=== PATIENT | male | born 1945 | race Caucasian/White ===

== ENCOUNTER 2021-05-19 08:35 | Inpatient (IN) | payer BC, SELFPAY ==
[2021-05-18 20:00] VITALS: BP_SYST 114
[~2021-05-19] VITALS: Ht 182.9 cm; Wt 85.8 kg
[2021-05-19 09:41] VITALS: BP_SYST 115
[2021-05-19] MEDS ORDERED: NACL 0.9% 1,000 ML IV ONE (10:45)
[2021-05-19 11:09] LABS: BASOPHILS # (AUTO) 0.1 K/uL (0.0-0.2); BASOPHILS % (AUTO) 0.6 % (0.0-2.0); EOSINOPHILS % (AUTO) 0.4 % (0.0-4.0); HEMATOCRIT 40.7 % (36-54); HEMOGLOBIN 14.1 g/dL (14.0-18.0); LYMPHOCYTES # (AUTO) 0.8 K/uL (1.0-5.5); LYMPHOCYTES % (AUTO) 9.2 % (20.5-51.5); MEAN CORPUSCULAR HEMOGLOBIN 33 pg (27-31); MEAN CORPUSCULAR HGB CONC 35 % (32-36); MEAN CORPUSCULAR VOLUME 95 fL (79.0-98.0); MONOCYTES # (AUTO) 0.9 K/uL (0.0-1.0); MONOCYTES % (AUTO) 10.4 % (1.7-9.3); NEUTROPHILS # (AUTO) 6.8 K/uL (1.8-7.7); NEUTROPHILS % (AUTO) 79.4 % (40.0-70.0); PLATELET COUNT (AUTO) 239 K/uL (130-430); RED BLOOD CELL COUNT(AUTO) 4.28 MIL/uL (4.2-6.2); RED CELL DISTRIBUTION WIDTH 13.5 % (9.0-15.0); WHITE BLOOD COUNT (AUTO) 8.5 K/uL (4.8-10.8)
[2021-05-19] MEDS ORDERED: ETOMIDATE 20 MG/ 10 ML VIAL (AMIDATE) IVP ONE (11:30)
[2021-05-19 11:33] LABS: PROTHROMBIN TIME 10.4 SECS (9.5-12.5)
[2021-05-19 11:36] LABS: ANION GAP 11 (5-15); CALCIUM 8.5 mg/dL (8.4-11.0); CHLORIDE 100 mmol/L (98-107); CREATININE 1.31 mg/dL (0.55-1.30); GLUCOSE 111 mg/dL (70-99); POTASSIUM 3.4 mmol/L (3.5-5.1); SODIUM SERUM 136 mmol/L (136-145); UREA NITROGEN, BLOOD 25 mg/dL (8-21)
[2021-05-19 11:41] LABS: ALANINE AMINOTRANSFERASE 21 U/L (12-78); ALBUMIN 3.5 g/dL (3.4-4.8); ASPARTATE AMINOTRANSFERASE 19 U/L (10-37); TOTAL BILIRUBIN 1.1 mg/dL (0.0-1.0)
[2021-05-19 11:41] LABS: BILIRUBIN,URINE NEGATIVE (NEGATIVE); BLOOD, URINE NEGATIVE (NEGATIVE); CLARITY/URINE CLEAR (CLEAR); COLOR,URINE YELLOW (YELLOW); GLUCOSE,URINE NEGATIVE (NEGATIVE); KETONES,URINE 1+ (NEGATIVE); LEUKOCYTE ESTERASE ,URINE NEGATIVE (NEGATIVE); NITRITE, URINE NEGATIVE (NEGATIVE); PROTEIN URINE NEGATIVE (NEGATIVE); UROBILINOGEN,URINE 0.2 (0.2-1.0)
[2021-05-19] MEDS ORDERED: LISI10TA29 PO (13:07)
[2021-05-19] MEDS ORDERED: HYG25 PO (13:07)
[2021-05-19] MEDS ORDERED: ROSU10TA2 PO (13:07)
[2021-05-19] MEDS ORDERED: DIPHENHYDRAMINE INJ 50 MG/ML VIAL IVP ONE (14:00)
[2021-05-19] MEDS ORDERED: MORPHINE 4 MG INJ. 4 MG/ML VIAL IVP ONE (14:00)
[2021-05-19] MEDS ORDERED: BUPIVACAINE LIPOSOME/PF 266 MG/20 ML VIAL INFIL ONE (14:58)
[2021-05-19] MEDS ORDERED: LR 1,000 ML IV ONE (15:00)
[2021-05-19] MEDS ORDERED: HYDROmorphone 1 MG/ML INJ. CARTRIDGE IVP PRN (15:00)
[2021-05-19] MEDS ORDERED: fentaNYL CITRATE/PF 100 MCG/2 ML AMP IVP PRN ×2 (16:00)
[2021-05-19] MEDS ORDERED: ONDANSETRON HCL 4 MG/2 ML VIAL IVP PRN ×2 (16:00→18:00)
[2021-05-19] MEDS ORDERED: METOCLOPRAMIDE HCL 10 MG/2 ML VIAL IVP PRN (16:00)
[2021-05-19] MEDS ORDERED: BUPIVACAINE /EPINEPHRINE/PF 0.25% 30 ML VIAL INJ ONE (17:05)
[2021-05-19] MEDS ORDERED: fentaNYL CITRATE 250 MCG/5 ML AMP ONE (17:05)
[2021-05-19] MEDS ORDERED: D5W 50 ML IV.SOLN IV ONE (17:05)
[2021-05-19] MEDS ORDERED: PROPOFOL 200MG/ 20ML VIAL (DIPRIVAN) IV ONE (17:05)
[2021-05-19] MEDS ORDERED: ROCURONIUM BROMIDE 10 MG/ML (ZEMURON) ONE (17:05)
[2021-05-19] MEDS ORDERED: NS 1000 ML IV.SOLN IV ONE (17:05)
[2021-05-19] MEDS ORDERED: METOCLOPRAMIDE HCL 10 MG/2 ML VIAL ONE (17:05)
[2021-05-19] MEDS ORDERED: GLYCOPYRROLATE 0.2 MG/ML VIAL ONE (17:05)
[2021-05-19] MEDS ORDERED: ONDANSETRON HCL 4 MG/2 ML VIAL ONE (17:05)
[2021-05-19] MEDS ORDERED: SEVOFLURANE 15 MIN GAS INH ONE (17:05)
[2021-05-19] MEDS ORDERED: PIPERACILLIN/TAZOBACTAM 3.375 GM/DEX-IS 50 ML PIGGYBACK IV ONE (17:05)
[2021-05-19] MEDS ORDERED: PIPERACILLIN/TAZO 3.375 GM in NS 50 ML IV SCH ×5 (18:00→22:00)
[2021-05-19 18:05] VITALS: BP_SYST 114
[2021-05-19 20:00] VITALS: BP_SYST 114
[2021-05-19] MEDS: HYDROcodone/ACETAMIN 5-325 MG TAB (NORCO/ VICODIN) PO PRN (21:38)
[2021-05-19] MEDS: PIPERACILLIN/TAZO 3.375 GM in NS 50 ML IV SCH (21:39)
[2021-05-19 21:47] VITALS: BP_SYST 114
[2021-05-20 01:00] VITALS: BP_SYST 121
[2021-05-20] MEDS: PIPERACILLIN/TAZO 3.375 GM in NS 50 ML IV SCH ×3 (05:22→22:27)
[2021-05-20] MEDS: HYDROcodone/ACETAMIN 5-325 MG TAB (NORCO/ VICODIN) PO PRN (05:22)
[2021-05-20 07:57] VITALS: BP_SYST 99
[2021-05-20] MEDS ORDERED: LORazepam 2 MG/ML VIAL IVP PRN (10:15)
[2021-05-20 11:22] VITALS: BP_SYST 109
[2021-05-20] MEDS: THIAMINE HCL 100 MG TABLET PO SCH (14:35)
[2021-05-20] MEDS: ACETAMINOPHEN 325 MG TABLET PO PRN ×2 (15:26→19:54)
[2021-05-20 15:47] VITALS: BP_SYST 110
[2021-05-20 19:45] VITALS: BP_SYST 122
[2021-05-21] VITALS: BP_SYST 116
[2021-05-21] MEDS: PIPERACILLIN/TAZO 3.375 GM in NS 50 ML IV SCH ×3 (05:16→22:00)
[2021-05-21 06:57] LABS: BASOPHILS % (AUTO) 0.3 % (0.0-2.0); EOSINOPHILS # (AUTO) 0.2 K/uL (0.0-0.4); EOSINOPHILS % (AUTO) 1.7 % (0.0-4.0); HEMATOCRIT 34.1 % (36-54); HEMOGLOBIN 11.9 g/dL (14.0-18.0); LYMPHOCYTES # (AUTO) 0.6 K/uL (1.0-5.5); LYMPHOCYTES % (AUTO) 5.5 % (20.5-51.5); MEAN CORPUSCULAR HEMOGLOBIN 33 pg (27-31); MEAN CORPUSCULAR HGB CONC 35 % (32-36); MEAN CORPUSCULAR VOLUME 95 fL (79.0-98.0); MONOCYTES # (AUTO) 1.2 K/uL (0.0-1.0); MONOCYTES % (AUTO) 11.5 % (1.7-9.3); NEUTROPHILS # (AUTO) 8.8 K/uL (1.8-7.7); PLATELET COUNT (AUTO) 229 K/uL (130-430); RED BLOOD CELL COUNT(AUTO) 3.58 MIL/uL (4.2-6.2); RED CELL DISTRIBUTION WIDTH 13.1 % (9.0-15.0); WHITE BLOOD COUNT (AUTO) 10.9 K/uL (4.8-10.8)
[2021-05-21 08:00] VITALS: BP_SYST 118
[2021-05-21 08:04] LABS: ALANINE AMINOTRANSFERASE 18 U/L (12-78); ALBUMIN 2.6 g/dL (3.4-4.8); ASPARTATE AMINOTRANSFERASE 15 U/L (10-37); CREATININE 1.17 mg/dL (0.55-1.30); GLUCOSE 99 mg/dL (70-99); TOTAL BILIRUBIN 1.2 mg/dL (0.0-1.0); UREA NITROGEN, BLOOD 14 mg/dL (8-21)
[2021-05-21] MEDS: THIAMINE HCL 100 MG TABLET PO SCH (08:04)
[2021-05-21 08:31] LABS: ANION GAP 12 (5-15); CHLORIDE 98 mmol/L (98-107); SODIUM SERUM 135 mmol/L (136-145)
[2021-05-21 10:50] LABS: POTASSIUM 2.9 mmol/L (3.5-5.1)
[2021-05-21 12:00] VITALS: BP_SYST 129
[2021-05-21] MEDS ORDERED: POTASSIUM CHLORIDE 60 MEQ in NS 500 ML IV ONE (13:00)
[2021-05-21] MEDS: PSYLLIUM HUSK 1 PKT PACKET PO SCH ×2 (14:51→21:51)
[2021-05-21 16:00] VITALS: BP_SYST 103
[2021-05-21] MEDS: ACETAMINOPHEN 325 MG TABLET PO PRN (17:44)
[2021-05-21] MEDS: DOCUSATE SODIUM 100 MG CAPSULE PO SCH (21:51)
[2021-05-22] VITALS (7 sets, daily range): BP systolic 117–134
[2021-05-22] MEDS: HYDROcodone/ACETAMIN 5-325 MG TAB (NORCO/ VICODIN) PO PRN (01:18)
[2021-05-22] MEDS: PIPERACILLIN/TAZO 3.375 GM in NS 50 ML IV SCH ×3 (05:13→21:11)
[2021-05-22] MEDS: PSYLLIUM HUSK 1 PKT PACKET PO SCH ×3 (08:39→21:00)
[2021-05-22] MEDS: DOCUSATE SODIUM 100 MG CAPSULE PO SCH ×2 (08:39→21:00)
[2021-05-22] MEDS: THIAMINE HCL 100 MG TABLET PO SCH (08:39)
[2021-05-22 09:26] LABS: BASOPHILS % (AUTO) 0.5 % (0.0-2.0); EOSINOPHILS # (AUTO) 0.4 K/uL (0.0-0.4); EOSINOPHILS % (AUTO) 5.4 % (0.0-4.0); HEMATOCRIT 35.2 % (36-54); HEMOGLOBIN 12.3 g/dL (14.0-18.0); LYMPHOCYTES # (AUTO) 0.9 K/uL (1.0-5.5); LYMPHOCYTES % (AUTO) 11.8 % (20.5-51.5); MEAN CORPUSCULAR HEMOGLOBIN 33 pg (27-31); MEAN CORPUSCULAR HGB CONC 35 % (32-36); MEAN CORPUSCULAR VOLUME 95 fL (79.0-98.0); MONOCYTES # (AUTO) 1.1 K/uL (0.0-1.0); MONOCYTES % (AUTO) 13.2 % (1.7-9.3); NEUTROPHILS # (AUTO) 5.5 K/uL (1.8-7.7); NEUTROPHILS % (AUTO) 69.1 % (40.0-70.0); PLATELET COUNT (AUTO) 291 K/uL (130-430); RED CELL DISTRIBUTION WIDTH 13.1 % (9.0-15.0)
[2021-05-22 10:07] LABS: ANION GAP 8 (5-15); CALCIUM 8.2 mg/dL (8.4-11.0); CHLORIDE 103 mmol/L (98-107); CREATININE 1.05 mg/dL (0.55-1.30); GLUCOSE 89 mg/dL (70-99); POTASSIUM 3.6 mmol/L (3.5-5.1); SODIUM SERUM 137 mmol/L (136-145); UREA NITROGEN, BLOOD 11 mg/dL (8-21)
[2021-05-22 12:49] LABS: C-REACTIVE PROTEIN QUANT 12.3 mg/dL (0-0.5)
[2021-05-22 15:59] LABS: ERYTHROCYTE SEDIMENTATION RATE 37 MM/HR (0-15)
[2021-05-23 01:39] VITALS: BP_SYST 107
[2021-05-23] MEDS: PIPERACILLIN/TAZO 3.375 GM in NS 50 ML IV SCH (05:50)
[2021-05-23 06:30] LABS: BASOPHILS # (AUTO) 0.1 K/uL (0.0-0.2); BASOPHILS % (AUTO) 0.8 % (0.0-2.0); EOSINOPHILS # (AUTO) 0.5 K/uL (0.0-0.4); EOSINOPHILS % (AUTO) 6.7 % (0.0-4.0); HEMATOCRIT 34.8 % (36-54); HEMOGLOBIN 12.1 g/dL (14.0-18.0); LYMPHOCYTES % (AUTO) 12.8 % (20.5-51.5); MEAN CORPUSCULAR HEMOGLOBIN 33 pg (27-31); MEAN CORPUSCULAR HGB CONC 35 % (32-36); MEAN CORPUSCULAR VOLUME 94 fL (79.0-98.0); MONOCYTES % (AUTO) 13.3 % (1.7-9.3); NEUTROPHILS # (AUTO) 5.2 K/uL (1.8-7.7); NEUTROPHILS % (AUTO) 66.4 % (40.0-70.0); PLATELET COUNT (AUTO) 352 K/uL (130-430); RED BLOOD CELL COUNT(AUTO) 3.69 MIL/uL (4.2-6.2); RED CELL DISTRIBUTION WIDTH 13.1 % (9.0-15.0); WHITE BLOOD COUNT (AUTO) 7.8 K/uL (4.8-10.8)
[2021-05-23 06:57] LABS: ALANINE AMINOTRANSFERASE 16 U/L (12-78); ALBUMIN 2.5 g/dL (3.4-4.8); ANION GAP 11 (5-15); ASPARTATE AMINOTRANSFERASE 13 U/L (10-37); CALCIUM 8.3 mg/dL (8.4-11.0); CHLORIDE 100 mmol/L (98-107); CREATININE 1.03 mg/dL (0.55-1.30); GLUCOSE 81 mg/dL (70-99); POTASSIUM 3.8 mmol/L (3.5-5.1); SODIUM SERUM 136 mmol/L (136-145); TOTAL BILIRUBIN 0.8 mg/dL (0.0-1.0); UREA NITROGEN, BLOOD 12 mg/dL (8-21)
[2021-05-23 08:00] VITALS: BP_SYST 132
[2021-05-23] MEDS: PSYLLIUM HUSK 1 PKT PACKET PO SCH (08:04)
[2021-05-23] MEDS: DOCUSATE SODIUM 100 MG CAPSULE PO SCH (08:04)
[2021-05-23] MEDS: THIAMINE HCL 100 MG TABLET PO SCH (08:15)
[2021-05-23 11:56] LABS: ERYTHROCYTE SEDIMENTATION RATE 54 MM/HR (0-15)
[2021-05-23 12:00] VITALS: BP_SYST 145
[2021-05-23 13:34] LABS: C-REACTIVE PROTEIN QUANT 5.8 mg/dL (0-0.5)
[2021-05-23 14:48] VITALS: BP_SYST 145
== END 2021-05-23 17:00 | disposition home health service (06) | DRG 332 ==
LOC: SED 08:35 → SMU 15:18
PROVIDERS: ADMIT Surgery; ATTEND Internal Medicine Hospice and Palliative Medicine
PROC: 0DBP0ZZ Excision of Rectum, Open Approach (ICD-10-PCS; principal; 2021-05-19 15:00)
DX: K62.3 Rectal prolapse (principal); E43 Unspecified severe protein-calorie malnutrition; E87.1 Hypo-osmolality and hyponatremia; K62.2 Anal prolapse; E78.5 Hyperlipidemia, unspecified; I10 Essential (primary) hypertension; E78.00 Pure hypercholesterolemia, unspecified; E83.52 Hypercalcemia; E80.6 Other disorders of bilirubin metabolism; E87.6 Hypokalemia; D64.9 Anemia, unspecified; D72.829 Elevated white blood cell count, unspecified; R33.9 Retention of urine, unspecified; Z20.822 Contact with and (suspected) exposure to COVID-19; Z68.25 Body mass index [BMI] 25.0-25.9, adult
CPT/HCPCS: 36415; 80048; 80053; 81003; 83605; 85025; 85610-TC; 85651-TC; 85730-TC; 86140; 87040-TC; 87081; 88305; 88307; 93005; 96361; 96374; 96375; 99285; C9290; J1200; J2270; J2405; J2543; J2704; J2765; J3010; J3480; J3490; J7030; J7040; J7060